=== PATIENT | female | born 1960 | race Caucasian/White ===

== ENCOUNTER 2017-04-22 14:05 | Emergency (ER) | payer OTHER ==
[~2017-04-22] VITALS: Ht 170.2 cm; Wt 68.2 kg
[2017-04-22 14:11] VITALS: BP 109/73
[2017-04-22] MEDS ORDERED: FAMOTIDINE 20 MG TABLET ONE (15:22)
[2017-04-22] MEDS ORDERED: FAMOTIDINE 20 MG TABLET PO ONE (15:30)
== END 2017-04-22 15:59 | disposition home or self-care (01) ==
LOC: ED 15:15
DX: T78.40XA Allergy, unspecified, initial encounter (principal); H57.13 Ocular pain, bilateral; X58.XXXA Exposure to other specified factors, initial encounter
CPT/HCPCS: 99283; Q0177

== ENCOUNTER → 2018-10-09 | Outpatient (CLI) | payer OTHER | END | disposition home or self-care (01) | LOC: CFH 10:01 | PROVIDERS: ATTEND Family Medicine | DX: Z12.39 Encounter for other screening for malignant neoplasm of breast (principal); Z80.3 Family history of malignant neoplasm of breast | CPT/HCPCS: 76377; 76641 ==

== ENCOUNTER → 2020-07-15 | Outpatient (CLI) | payer OTHER | END | disposition home or self-care (01) | LOC: CFH 07:58 | PROVIDERS: ATTEND Family Medicine | DX: N26.1 Atrophy of kidney (terminal) (principal); N94.89 Other specified conditions associated with female genital organs and menstrual cycle; N28.1 Cyst of kidney, acquired; Z80.3 Family history of malignant neoplasm of breast | CPT/HCPCS: 76641; 76770 ==